=== PATIENT | female | born 1985 | race Caucasian/White ===

== ENCOUNTER 2016-04-05 09:18 | Outpatient (CLI) | payer OTHER ==
[2016-04-05 09:35] VITALS: BP 121/77; PULSE 103; RESP 20; TEMP 97.5; BMI 38.9
== END 2016-04-05 10:20 | disposition home or self-care (01) ==
LOC: FBPOP 09:18
PROVIDERS: ATTEND Obstetrics & Gynecology
DX: O30.003 Twin pregnancy, unspecified number of placenta and unspecified number of amniotic sacs, third trimester (principal); Z3A.35 35 weeks gestation of pregnancy
CPT/HCPCS: 59025; G0463; 99213

== ENCOUNTER 2016-04-07 23:40 | Inpatient (IN) | payer OTHER ==
[2016-04-08] MEDS ORDERED: ceFAZolin 2 GM in SODIUM CHLORIDE 0.9% 100 ML IVPB ONE (00:08)
[2016-04-08] MEDS ORDERED: LACTATED RINGERS 1,000 ML IV ONE (00:08)
[2016-04-08] MEDS ORDERED: CITRIC ACID-SODIUM CITRATE 15 ML CUP PO ONE (00:08)
[2016-04-08] MEDS ORDERED: LACTATED RINGERS 1,000 ML IV SCH (00:15)
--- NOTE | 2016-04-08 00:22 | P.HPOB ---
History of Present Illness H&P Date: 04/08/16 Chief Complaint: twin with spontaneous rupture membranes this patient is a pleasant 31-year-old 5 para 1 female who presents to labor and delivery with complaints of a gush of fluid at approximately 10:30 this evening. Patient's is been complicated by known mono chorionic di amniotic twins.patient has had problems initially with twin to twin transfusion and was referred to maternal- medicine and also a subspecialist at [place]. Patient's condition improved and she is subsequent been followed closely by maternal medicine and myself. Patient didn't note a gush of fluid at approximately 10:30 this evening is found to be grossly ruptured. Due to placental issues has been recommended she proceed with section rather than vaginal delivery. Review of Systems Constitutional: Denies chills, Denies fever Ears, nose, mouth and throat: Denies headache, Denies sore throat Cardiovascular: Denies chest pain, Denies shortness of breath Respiratory: Denies cough Gastrointestinal: Reports heartburn Genitourinary: Reports Menstruation: Reports amenorrhea Musculoskeletal: Denies myalgias Integumentary: Denies pruritus, Denies rash Neurological: Denies numbness, Denies weakness Past Medical History Past Medical History: Hypertension Additional Past Medical History / Comment(s): HIATAL HERNIA History of Any Multi-Drug Resistant Organisms: None Reported, MRSA Date of last positivie culture/infection: 2006 MDRO Source:: leg Past Surgical History: Cholecystectomy, Ear Surgery Past Anesthesia/Blood Transfusion Reactions: No Reported Reaction Past Psychological History: Bipolar Smoking Status: Former smoker Past Alcohol Use History: None Reported Past Drug Use History: None Reported - Past Family History Mother Family Medical History: No Reported History Medications and Allergies Home Medications Medication Instructions Recorded Confirmed Type Doxylamine Succinate [Unisom] 25 mg PO HS 12/09/15 04/05/16 History Pnv with Ca,No.72/Iron/FA 1 tab PO DAILY 12/09/15 04/05/16 History [ Plus Tablet] Pyridoxine [Vitamin B-6] 50 mg PO DAILY 12/09/15 04/05/16 History Allergies Allergy/AdvReac Type Severity Reaction Status Date / Time codeine AdvReac Chest Verified 04/05/16 09:29 Pain/Vomiting Exam - Vital Signs Vital signs: Intake and Output 04/07/16 04/07/16 04/08/16 14:59 22:59 06:59 Other: Weight 99.79 kg Patient Weight 04/08/16 06:59 Weight 99.79 kg - OBG Physical Exam Abdomen: bowel sounds normal, no diffuse tenderness, no bruit present, no guarding noted, no hepatomegaly, no splenomegaly, no mass Vulva: both: normal Vagina: normal moisture, no discharge Cervix: cervix is 4 cm dilated with gross rupture membranes Uterus: enlarged Results labs show she is O-, rubella immune, RPR nonreactive, hepatitis B-, HIV nonreactive,: Was abnormal with a normal three-hour gtt. Assessment and Plan (1) Twin gestation, monochorionic diamniotic Narrative/Plan: this is a pleasant 31-year-old 5 para 1 female 35-4/7 weeks gestation with known twin gestation and premature rupture membranes. Plan at this time as primary section for delivery. Patient I have discussed the surgery and risks including risks of infection, bleeding, possible injury bowel, bladder , vessels, and other organs. All the patient's questions are answered and a written consent is obtained. Status: Acute (2) PROM (premature rupture of membranes) Status: Acute (3) Rh negative status during Status: Acute
[2016-04-08] MEDS ORDERED: LACTATED RINGERS 1,000 ML BAG IV ONE (00:33)
[2016-04-08] MEDS ORDERED: ONDANSETRON 4 MG/2 ML VIAL ONE (00:33)
[2016-04-08] MEDS ORDERED: ePHEDrine 50 MG/ML 1 ML AMP ONE (00:33)
[2016-04-08] MEDS ORDERED: MORPHINE SULFATE (PF) 0.3 MG/0.3 ML SYR ONE (00:33)
[2016-04-08] MEDS ORDERED: OXYTOCIN 10 UNIT/ML 1 ML VIAL IM ONE (00:33)
[2016-04-08] MEDS ORDERED: KETOROLAC 30 MG/ML 1 ML VIAL ONE (00:33)
[2016-04-08] MEDS ORDERED: diphenhydrAMINE 25 MG CAP PO PRN (01:16)
[2016-04-08] MEDS ORDERED: SIMETHICONE 80 MG CHEWABLE PO PRN (01:16)
[2016-04-08] MEDS ORDERED: ACETAMINOPHEN TAB 325 MG TAB PO PRN (01:16)
[2016-04-08] MEDS ORDERED: ZOLPIDEM 5 MG TAB PO PRN (01:16)
[2016-04-08] MEDS ORDERED: Rhogam IMMUNE GLOBULIN 1,500 UNIT/1 ML IM ONE (01:16)
[2016-04-08] MEDS ORDERED: diphenhydrAMINE 50 MG/ML 1 ML VIAL IVP PRN (01:16)
[2016-04-08] MEDS ORDERED: METOCLOPRAMIDE 5 MG/ML 2 ML VIAL IVP PRN (01:16)
[2016-04-08] MEDS ORDERED: HYDROcodone/APAP 5-325MG 1 EACH TAB PO PRN (01:18)
[2016-04-08 01:26] LABS: Basophils # (A) 0.1 k/uL (0-0.2); Basophils % (A) 0 %; CH 27.7; CHCM 31.7; Eosinophils # (A) 0.2 k/uL (0-0.7); Eosinophils % (A) 1 %; HCT 27.7 % (34.0-46.0); HDW 3.55; HGB 8.9 gm/dL (11.4-16.0); Hypochromasia Moderate; Luc # (Auto) 0.44; Luc % (Auto) 3; Lymphocytes # (A) 2.9 k/uL (1.0-4.8); Lymphocytes % (A) 20 %; MCH 28.1 pg (25.0-35.0); MCV 87.8 fL (80.0-100.0); Mean Platelet Volume 7.4; Monocytes # (A) 0.9 k/uL (0-1.0); Monocytes % (A) 6 %; Neutrophils % (A) 69 %; Poikilocytosis Slight; RBC 3.16 m/uL (3.80-5.40); RDW 14.1 % (11.5-15.5); WBC 14.5 k/uL (3.8-10.6); WBC (Perox) 15.23
--- NOTE | 2016-04-08 01:31 | P.OP ---
Date of Procedure: 04/08/16 Preoperative Diagnosis: #1:35-4/7 week twin gestation, monochorionic/diamniotic #2: Premature rupture membranes. Postoperative Diagnosis: #1: Same. #2: Transverse presentation twin B Procedure(s) Performed: Primary low transverse section Anesthesia: spinal Surgeon: Kevin Segundo Second Facing Baster #1: Carlos Haley Estimated Blood Loss (ml): 800 Pathology: other (Placenta) Condition: stable Disposition: floor Indications for Procedure: Please see dictated H&P for intimate details of this patient's admission. Brief summary is a pleasant 31-year-old 5 para 1 female 35-4/7 weeks gestation who is admitted to labor and delivery with complaints of gush of fluid about 10:30 this evening. Patient's found to have gross rupture membranes. Patient has known twin gestation has scheduled approximately 1-1/2 weeks. As understand the surgery and risks including risks of infection, bleeding, possible injury to bowel, bladder, vessels, and other organs. Patient also understands risk of DVT and pulmonary embolism. All the patient's questions are answered written consent is obtained. Operative Findings: This was a viable fetus 1 male Apgars 8 and 9 delivery time is 0048 hours. Viable fetus 2 Apgars 8 and 9 delivery time 0048 hours. Fetus 1 was vertex and fetus 2 was transverse. Both infants appeared grossly normal. Description of Procedure: This patient has a Valladares catheter placed to straight drain. She is subsequent taken to the operating room where she sat up and spinal anesthetic is administered without incident. With an adequate level of anesthesia she has abdominal prep and drape. Scalpels then taken and a Pfannenstiel skin incision is then made. A second scalpel is then taken down to the fascia and it is scored with a knife. Fascial incision extended bilaterally using the Christianson scissors. Fascia is then dissected off the rectus muscles sharply. Rectus muscles are and the peritoneum was identified and entered sharply. Peritoneal incision is then extended superior and inferiorly with Metzenbaum scissors. The bladder blade is then placed. Bladder peritoneum was taken off the lower uterine segment. Scalpels and taken a low transverse uterine incision is then made. Using a hemostat I then into the uterine cavity bluntly. There is loss of clear fluid. Fetus 1 is found to be in the vertex presentation was delivered through the incision with fundal pressure. Mouth and nares are bulb suctioned and there is no evidence of a nuchal cord. Doubly clamped the cord and this infant is handed off to the nurses in attendance. I then inspected the uterine cavity and a second fetus is found to be in the transverse presentation. I guided to the vertex presentation through the incision second bag of water is ruptured for clear fluid. With this done the fetus is then delivered with fundal pressure and again this is a vigorous viable male infant Apgars 8 and 9 delivery time was 0048 hours. This umbilical cord is doubly clamped and cut and again appears to be trivascular. This fetus handed off to the nurses in attendance the placenta is then manually extracted intact. The uterus is then externalized and the uterine incision demarcated with Jett clamps. Then closed the uterine incision with 0 Vicryl suture running locked fashion. Good hemostasis is noted. Bladder peritoneum was reapproximated with 3-0 Vicryl again good hemostasis is noted. Excess fluid is removed from the abdomen and pelvis. Uterus tubes and ovaries. Normal for term gestation. Uterus placed back into the abdomen. The parietal peritoneum was then closed using 0 Vicryl running fashion. Rectus muscles reapproximated in 0 Vicryl interrupted fashion. Fascia is then closed using 0 PDS. Fascial incision is intact and hemostatic. Subcutaneous tissues and closed using a 3-0 Vicryl. Skin is and closed using gloria. All counts are correct 3. There are no complications. Infants were taken to the nursery due to her gestational age and the mother's taken to her birthing suite.
[2016-04-08] MEDS: OXYTOCIN 30 UNITS/500 ML NS 30 UNIT in SALINE 1 500ML.BAG IV SCH ×3 (01:47→19:03)
[2016-04-08 02:26] VITALS: BMI 38.9
[2016-04-08] MEDS: LACTATED RINGERS 1,000 ML IV SCH ×5 (03:39→23:10)
--- NOTE | 2016-04-08 05:51 | P.PNOBGPC ---
Subjective - Subjective Patient reports: Reports appetite normal, Reports voiding normally, Reports pain well controlled, Reports ambulating normally : doing well, in NICU Objective - Vital Signs Latest vital signs: Vital Signs Temp Pulse Resp BP Pulse Ox 04/08/16 03:15 98 F 80 16 135/80 100 04/08/16 02:45 78 16 128/62 100 04/08/16 02:15 73 16 123/78 100 04/08/16 02:00 73 16 122/73 100 04/08/16 01:45 76 16 128/76 100 04/08/16 01:30 70 16 130/70 100 04/08/16 01:15 97.8 F 70 16 132/71 100 04/08/16 00:21 96.6 F L 97 16 149/87 100 Intake and Output 04/07/16 04/07/16 04/08/16 14:59 22:59 06:59 Output Total 5800 Balance -5800 Output: Urine 1000 Emesis 4800 Other: Voiding Method Indwelling Catheter Weight 99.79 kg Patient Weight 04/08/16 06:59 Weight 99.79 kg - Exam Lungs: bilateral: normal Chest: Normal S1, Normal S2 Extremities: Present: normal Abdomen: Present: normal appearance, soft. Absent: distention, tenderness Incision: Present: normal, dry, intact Uterus: Present: normal, firm - Labs Labs: Abnormal Lab Results - Last 24 Hours (Table) 04/08/16 Range/Units 01:14 WBC 14.5 H (3.8-10.6) k/uL RBC 3.16 L (3.80-5.40) m/uL Hgb 8.9 L (11.4-16.0) gm/dL Hct 27.7 L (34.0-46.0) % Neutrophils # 10.0 H (1.3-7.7) k/uL Assessment and Plan (1) Twin gestation, monochorionic diamniotic Narrative/Plan: Postoperative day #1. Patient is resting without complaints. Preoperative hemoglobin was 8.9. A repeat is pending. Uterus is firm nontender she's having normal lochia. Incision is intact and dry. My impression is a normal postoperative course with chronic anemia. Plan is to advance diet as tolerated , check a repeat CBC, begin iron supplementation, and encouraged patient to ambulate. Current Visit: No Status: Acute Code(s): O30.039 - TWIN , MONOCHORIONIC/DIAMNIOTIC, UNSP TRIMESTER SNOMED Code(s): 82297431 (2) PROM (premature rupture of membranes) Current Visit: Yes Status: Acute Code(s): O42.90 - ZAYRA ROM, 7TH0 BETW RUPT & ONST LABR, UNSP WEEKS OF GEST SNOMED Code(s): 78131488 (3) Rh negative status during Current Visit: No Status: Acute Code(s): O09.899 - SUPERVISION OF OTHER HIGH RISK PREGNANCIES, UNSP TRIMESTER SNOMED Code(s): 610595993
[2016-04-08 08:09] LABS: Basophils # (A) 0.1 k/uL (0-0.2); Basophils % (A) 0 %; CH 28.2; CHCM 33.2; Eosinophils # (A) 0.1 k/uL (0-0.7); Eosinophils % (A) 0 %; HCT 29.2 % (34.0-46.0); HDW 3.59; HGB 9.4 gm/dL (11.4-16.0); Hypochromasia Slight; Luc # (Auto) 0.26; Luc % (Auto) 1; Lymphocytes # (A) 2.5 k/uL (1.0-4.8); Lymphocytes % (A) 12 %; MCH 27.5 pg (25.0-35.0); MCHC 32.2 g/dL (31.0-37.0); MCV 85.4 fL (80.0-100.0); Mean Platelet Volume 8.3; Monocytes % (A) 5 %; Neutrophils # (A) 17.7 k/uL (1.3-7.7); Neutrophils % (A) 82 %; Poikilocytosis Slight; RBC 3.42 m/uL (3.80-5.40); RDW 14.3 % (11.5-15.5); WBC 21.6 k/uL (3.8-10.6); WBC (Perox) 23.24
[2016-04-08] MEDS: KETOROLAC 30 MG/ML 1 ML VIAL IVP PRN ×3 (08:32→20:06)
[2016-04-08] MEDS: SENNOSIDES-DOCUSATE SODIUM 1 EACH TAB PO SCH ×2 (08:33→19:14)
[2016-04-08] MEDS: ceFAZolin 2 GM in SODIUM CHLORIDE 0.9% 100 ML IVPB SCH ×2 (09:17→17:09)
--- NOTE | 2016-04-08 10:37 | P.PN ---
Progress Note - Text Date:04/08 Time:700 Patient is status post . Patient seen this morning with VAS score of 2. c/o of pruritus, no c/o nausea/vomiting, comfortable and doing well.
[2016-04-08] MEDS: IRON AG/C/B12/CA/SUC.ACID/STOM 1 EACH TAB PO SCH (14:41)
[2016-04-08] MEDS: HYDROcodone/APAP 5-325MG 1 EACH TAB PO PRN (23:15)
[2016-04-09] MEDS: IBUPROFEN 600 MG TAB PO PRN ×4 (04:32→23:39)
--- NOTE | 2016-04-09 07:00 | P.PNOBGPC ---
Subjective - Subjective Patient reports: Reports appetite normal, Reports voiding normally, Reports pain well controlled, Reports ambulating normally : doing well, in NICU Objective - Vital Signs Latest vital signs: Vital Signs Temp Pulse Resp BP Pulse Ox 04/09/16 00:00 98.1 F 78 16 116/65 97 04/08/16 20:00 98.0 F 83 16 132/75 99 04/08/16 16:00 97.6 F 85 18 105/75 04/08/16 12:00 98.0 F 95 16 141/78 98 04/08/16 08:00 99.0 F 91 18 128/80 97 Intake and Output 04/08/16 04/08/16 04/09/16 14:59 22:59 06:59 Intake Total 225 Output Total 325 300 700 Balance -100 -300 -700 Intake: Intake, IV Titration 225 Amount Oxytocin 30 Units/500 ml 125 Ns 30 unit In Saline 1 500ml.bag @ 120 mls/hr IV .Q4H10M [facility] Rx#: [id number] ceFAZolin 2 gm In Sodium 100 Chloride 0.9% 100 ml @ 100 mls/hr IVPB Q8HR [facility] Rx#:[id number] Output: Urine 325 300 700 Uretheral (Valladares) 200 Other: Voiding Method Indwelling Catheter # Voids 0 1 1 # Bowel Movements 0 - Exam Lungs: bilateral: normal Chest: Normal S1, Normal S2 Extremities: Present: normal Abdomen: Present: normal appearance, soft. Absent: distention, tenderness Incision: Present: normal, dry, intact Uterus: Present: normal, firm - Labs Labs: Abnormal Lab Results - Last 24 Hours (Table) 04/08/16 Range/Units 07:47 WBC 21.6 H (3.8-10.6) k/uL RBC 3.42 L (3.80-5.40) m/uL Hgb 9.4 L (11.4-16.0) gm/dL Hct 29.2 L (34.0-46.0) % Neutrophils # 17.7 H (1.3-7.7) k/uL Assessment and Plan (1) Twin gestation, monochorionic diamniotic Narrative/Plan: Postoperative day #2. Patient is resting without complaints. Vital signs are stable she is afebrile. Her admission hemoglobin was 8.9 however hemoglobin went up slightly to 9.2. Patient is taking some iron. Patient is tolerating regular diet. Patient is ambulating and urinating without difficulty. Plan today is to continue routine postoperative care. Current Visit: No Status: Acute Code(s): O30.039 - TWIN , MONOCHORIONIC/DIAMNIOTIC, UNSP TRIMESTER SNOMED Code(s): 48671987 (2) PROM (premature rupture of membranes) Current Visit: Yes Status: Acute Code(s): O42.90 - ZAYRA ROM, 7TH0 BETW RUPT & ONST LABR, UNSP WEEKS OF GEST SNOMED Code(s): 76777451 (3) Rh negative status during Current Visit: No Status: Acute Code(s): O09.899 - SUPERVISION OF OTHER HIGH RISK PREGNANCIES, UNSP TRIMESTER SNOMED Code(s): 976632840
[2016-04-09] MEDS: HYDROcodone/APAP 5-325MG 1 EACH TAB PO PRN ×3 (08:34→19:55)
[2016-04-09] MEDS: SENNOSIDES-DOCUSATE SODIUM 1 EACH TAB PO SCH ×2 (08:34→19:56)
[2016-04-09] MEDS: IRON AG/C/B12/CA/SUC.ACID/STOM 1 EACH TAB PO SCH (11:10)
[2016-04-10] MEDS: HYDROcodone/APAP 5-325MG 1 EACH TAB PO PRN ×3 (03:10→16:21)
--- NOTE | 2016-04-10 06:57 | P.PNOBGPC ---
Subjective - Subjective Patient reports: Reports appetite normal, Reports voiding normally, Reports pain well controlled, Reports ambulating normally : doing well Objective - Vital Signs Latest vital signs: Vital Signs Temp Pulse Resp BP Pulse Ox 04/09/16 23:42 98.2 F 88 18 142/94 97 04/09/16 16:00 98.1 F 90 18 123/79 04/09/16 08:00 97.7 F 90 18 131/75 Intake and Output 04/09/16 04/09/16 04/10/16 14:59 22:59 06:59 Intake Total 500 1000 Balance 500 1000 Intake: Oral 500 1000 Other: # Voids 1 4 1 - Exam Lungs: bilateral: normal Chest: Normal S1, Normal S2 Extremities: Present: normal Abdomen: Present: normal appearance, soft. Absent: distention, tenderness Incision: Present: normal, dry, intact Uterus: Present: normal, firm Assessment and Plan (1) Twin gestation, monochorionic diamniotic Narrative/Plan: day #3. Patient is resting without complaints. Vital signs are stable she is afebrile. Uterus is firm nontender and her incision is intact and dry. My impression this is a normal course. Plan is continue routine postoperative care and discharge home tomorrow Current Visit: No Status: Acute Code(s): O30.039 - TWIN , MONOCHORIONIC/DIAMNIOTIC, UNSP TRIMESTER SNOMED Code(s): 35624181 (2) PROM (premature rupture of membranes) Current Visit: Yes Status: Acute Code(s): O42.90 - ZAYRA ROM, 7TH0 BETW RUPT & ONST LABR, UNSP WEEKS OF GEST SNOMED Code(s): 12401727 (3) Rh negative status during Current Visit: No Status: Acute Code(s): O09.899 - SUPERVISION OF OTHER HIGH RISK PREGNANCIES, UNSP TRIMESTER SNOMED Code(s): 916681931
[2016-04-10] MEDS: IRON AG/C/B12/CA/SUC.ACID/STOM 1 EACH TAB PO SCH (08:11)
[2016-04-10] MEDS: IBUPROFEN 600 MG TAB PO PRN ×3 (08:11→20:48)
[2016-04-10] MEDS: SENNOSIDES-DOCUSATE SODIUM 1 EACH TAB PO SCH ×2 (08:12→20:48)
[2016-04-11] MEDS: HYDROcodone/APAP 5-325MG 1 EACH TAB PO PRN ×2 (03:45→12:49)
--- NOTE | 2016-04-11 06:30 | P.PNOBGPC ---
Subjective - Subjective Patient reports: Reports appetite normal, Reports voiding normally, Reports pain well controlled, Reports ambulating normally [place]: doing well, in NICU Objective - Vital Signs Latest vital signs: Vital Signs Temp Pulse Resp BP 04/10/16 23:11 98.1 F 86 16 131/82 04/10/16 16:00 97.9 F 77 18 126/77 04/10/16 08:00 97.4 F L 90 16 126/80 Intake and Output 04/10/16 04/10/16 04/11/16 14:59 22:59 06:59 Other: # Voids 1 1 2 - Exam Lungs: bilateral: normal Chest: Normal S1, Normal S2 Extremities: Present: normal Abdomen: Present: normal appearance, soft. Absent: distention, tenderness Incision: Present: normal, dry, intact Uterus: Present: normal, firm Assessment and Plan (1) Twin gestation, monochorionic diamniotic Narrative/Plan: Postoperative day #4. Patient is resting without complaints. Vital signs are stable and she is afebrile. Uterus is firm nontender, her incision is intact and dry. Impression normal postoperative course. Plan is to continue routine postoperative care and discharge home later today. Current Visit: No Status: Acute Code(s): O30.039 - TWIN , MONOCHORIONIC/DIAMNIOTIC, UNSP TRIMESTER SNOMED Code(s): 05836999 (2) PROM (premature rupture of membranes) Current Visit: Yes Status: Acute Code(s): O42.90 - ZAYRA ROM, 7TH0 BETW RUPT & ONST LABR, UNSP WEEKS OF GEST SNOMED Code(s): 39143135 (3) Rh negative status during Current Visit: No Status: Acute Code(s): O09.899 - SUPERVISION OF OTHER HIGH RISK PREGNANCIES, UNSP TRIMESTER SNOMED Code(s): 563286367
--- NOTE | 2016-04-11 06:33 | P.DS ---
Providers Date of admission: 04/08/16 00:05 Expected date of discharge: 04/11/16 Attending physician: Kevin Segundo Primary care physician: Stated None - Discharge Diagnosis(es) (1) Twin gestation, monochorionic diamniotic Current Visit: No Status: Acute (2) PROM (premature rupture of membranes) Current Visit: Yes Status: Acute (3) Rh negative status during Current Visit: No Status: Acute Hospital Course: Please see dictated H&P for intimate details of this patient's admission. Brief summary this is a pleasant 31-year-old 5 para 1 female 35-4/7 weeks gestation with known twins presents to labor and delivery with spontaneous rupture membranes. Patient undergoes a primary low transverse section for twin male infants. The see dictated operative note. Postoperatively for patient's felt be stable for discharge home follow up with me in 1 week. Procedures: Primary low transverse section Patient Condition at Discharge: Good Plan - Discharge Summary New Discharge Prescriptions: HYDROcodone/APAP 5-325MG [[place] 5-325] 1 - 2 each PO Q4HR PRN #50 tab PRN Reason: Pain Ibuprofen [Motrin] 600 mg PO Q6HR PRN #40 tab PRN Reason: Mild Pain Or Fever >= 100.5 Iron Ag/C/B12/Ca/Suc.acid/Stom [Chromagen LF] 1 each PO DAILY #30 tab Discharge Medication List Doxylamine Succinate [Unisom] 25 mg PO HS 12/09/15 [History] Pnv with Ca,No.72/Iron/FA [ Plus Tablet] 1 tab PO DAILY 12/09/15 [ History] Pyridoxine [Vitamin B-6] 50 mg PO DAILY 12/09/15 [History] HYDROcodone/APAP 5-325MG [[place] 5-325] 1 - 2 each PO Q4HR PRN #50 tab 04/08/16 [ Rx] Ibuprofen [Motrin] 600 mg PO Q6HR PRN #40 tab 04/08/16 [Rx] Iron Ag/C/B12/Ca/Suc.acid/Stom [Chromagen LF] 1 each PO DAILY #30 tab 04/08/16 [ Rx] Follow up Appointment(s)/Referral(s): Kevin Segundo MD [STAFF PHYSICIAN] - 1 Week (Please see me in 6 weeks for a check as well.) Patient Instructions/Handouts: Iron Deficiency Anemia (DC), (DC) Activity/Diet/Wound Care/Special Instructions: No heavy lifting or strenuous activities for 6 weeks. No intercourse or anything per vagina for 6 weeks. Please call if any fever, chills, excessive vaginal bleeding, and/or abdominal pain. Discharge Disposition: HOME SELF-CARE
[2016-04-11] MEDS: SENNOSIDES-DOCUSATE SODIUM 1 EACH TAB PO SCH (08:01)
[2016-04-11] MEDS: IBUPROFEN 600 MG TAB PO PRN (08:01)
[2016-04-11 08:08] VITALS: BP 142/93; PULSE 94; RESP 20; TEMP 98.4
[2016-04-11] MEDS: IRON AG/C/B12/CA/SUC.ACID/STOM 1 EACH TAB PO SCH (12:52)
== END 2016-04-11 14:40 | disposition home or self-care (01) | DRG 765 ==
LOC: FBPOP 23:40 → 4FBP 04-08 00:05
PROVIDERS: ADMIT Obstetrics & Gynecology; ATTEND Obstetrics & Gynecology
PROC: 10D00Z1 Extraction of Products of Conception, Low, Open Approach (ICD-10-PCS; principal; 2016-04-08 00:43)
DX: O42.913 Preterm premature rupture of membranes, unspecified as to length of time between rupture and onset of labor, third trimester (principal); O10.92 Unspecified pre-existing hypertension complicating childbirth; O30.033 Twin pregnancy, monochorionic/diamniotic, third trimester; O99.02 Anemia complicating childbirth; D64.9 Anemia, unspecified; O99.72 Diseases of the skin and subcutaneous tissue complicating childbirth; O99.62 Diseases of the digestive system complicating childbirth; K44.9 Diaphragmatic hernia without obstruction or gangrene; L29.9 Pruritus, unspecified; Z37.2 Twins, both liveborn; Z3A.35 35 weeks gestation of pregnancy; Z67.91 Unspecified blood type, Rh negative; Z87.891 Personal history of nicotine dependence; Z86.14 Personal history of Methicillin resistant Staphylococcus aureus infection
CPT/HCPCS: 59025; 84112; 85025; 85461; 86850; 86870; 86880; 86900; 86901; 88307; 99213

== ENCOUNTER 2017-01-08 03:45 | Emergency (ER) | payer OTHER ==
[2017-01-08] MEDS ORDERED: ACETAMINOPHEN TAB 325 MG TAB PO STA (04:15)
[2017-01-08] MEDS ORDERED: SODIUM CHLORIDE 0.9% 1,000 ML IV ONE (04:15)
[2017-01-08] MEDS ORDERED: MAG HYDROX/AL HYDROX/SIMETH 30 ML CUP PO PRN (04:16)
[2017-01-08] MEDS ORDERED: LIDOCAINE VISCOUS 2% 15 ML CUP MUCOUS MEM ONE (04:16)
[2017-01-08 04:33] LABS: Basophils % (A) 0 %; CH 28.5; Eosinophils # (A) 0.3 k/uL (0-0.7); Eosinophils % (A) 2 %; HCT 34.7 % (34.0-46.0); HDW 2.69; HGB 11.7 gm/dL (11.4-16.0); Luc # (Auto) 0.21; Luc % (Auto) 2; Lymphocytes # (A) 0.9 k/uL (1.0-4.8); Lymphocytes % (A) 7 %; MCH 29.3 pg (25.0-35.0); MCHC 33.7 g/dL (31.0-37.0); MCV 86.9 fL (80.0-100.0); Mean Platelet Volume 6.8; Monocytes # (A) 0.6 k/uL (0-1.0); Monocytes % (A) 5 %; Neutrophils # (A) 10.2 k/uL (1.3-7.7); Neutrophils % (A) 84 %; RBC 3.99 m/uL (3.80-5.40); RDW 14.9 % (11.5-15.5); WBC 12.2 k/uL (3.8-10.6); WBC (Perox) 12.11
--- NOTE | 2017-01-08 04:34 | ED ---
Back Pain HPI - General Chief Complaint: Back Pain/Injury Stated Complaint: Abdominal Pain Time Seen by Provider: 01/08/17 03:59 Source: patient Limitations: no limitations - History of Present Illness Initial Comments: This patient is a 31-year-old woman who presents with pain to the mid back. She describes it as a dull type of pain, constant, moderate to severe intensity. The patient states it is made worse by certain positions and also when she takes a deep breath in. She states that it also sometimes seems worse after eating. It was slightly better if she lies still on the bed. Patient denies having any sort of injury. She woke with the pain Az morning. She has not had any associated symptoms. MD Complaint: back pain Onset/Timin -: days(s) Similar Symptoms Previously: No Place: home Radiation: abdomen Severity: moderate Quality: dull, aching Consistency: constant Improves With: none Worsens With: movement, deep breaths/cough - Related Data Home Medications Medication Instructions Recorded Confirmed Pnv,Calcium 72/Iron/Folic Acid 1 tab PO DAILY 12/09/15 01/08/17 [ Plus Tablet] Allergies Allergy/AdvReac Type Severity Reaction Status Date / Time codeine AdvReac Chest Verified 04/25/16 13:31 Pain/Vomiting Review of Systems ROS Statement: Those systems with pertinent positive or pertinent negative responses have been documented in the HPI. ROS Other: All systems not noted in ROS Statement are negative. Constitutional: Denies: fever, chills Respiratory: Denies: cough, dyspnea Cardiovascular: Denies: chest pain, palpitations, edema, syncope Gastrointestinal: Denies: abdominal pain, nausea, vomiting, diarrhea, constipation Genitourinary: Denies: dysuria, frequency, hematuria, discharge, abnormal menses Musculoskeletal: Reports: as per HPI, back pain Skin: Denies: rash Neurological: Denies: headache, weakness, numbness Past Medical History Past Medical History: Hypertension Additional Past Medical History / Comment(s): HIATAL HERNIA History of Any Multi-Drug Resistant Organisms: MRSA Date of last positivie culture/infection: 10/25/07 MDRO Source:: legs Past Surgical History: Section, Cholecystectomy, Ear Surgery Past Anesthesia/Blood Transfusion Reactions: No Reported Reaction Past Psychological History: Bipolar Smoking Status: Current every day smoker Past Alcohol Use History: None Reported Past Drug Use History: None Reported - Past Family History Mother Family Medical History: No Reported History General Exam Limitations: no limitations General appearance: alert, in no apparent distress Head exam: Present: atraumatic, normocephalic Eye exam: Present: normal appearance. Absent: scleral icterus, conjunctival injection ENT exam: Present: normal oropharynx Neck exam: Present: normal inspection, full ROM Respiratory exam: Present: normal lung sounds bilaterally. Absent: respiratory distress, wheezes, rales, rhonchi, stridor Cardiovascular Exam: Present: normal rhythm, tachycardia (Rate approximately 112 bpm), systolic murmur (Grade 1/6 systolic ejection murmur). Absent: diastolic murmur, rubs, gallop GI/Abdominal exam: Present: soft. Absent: tenderness, guarding, rebound, mass Extremities exam: Present: normal inspection, normal capillary refill. Absent: pedal edema, calf tenderness Back exam: Present: normal inspection. Absent: CVA tenderness (R), CVA tenderness (L) Skin exam: Present: warm, dry, intact, normal color. Absent: rash Course Vital Signs 01/08/17 03:46 Temperature 98.0 F Pulse Rate 114 H Respiratory 20 Rate Blood Pressure 128/79 O2 Sat by Pulse 96 Oximetry Medical Decision Making - Medical Decision Making After discussing the results today, the patient requested to try something for constipation and will be given magnesium citrate to try at home. - Lab Data Result diagrams: 01/08/17 04:14 01/08/17 04:14 Lab Results 01/08/17 01/08/17 01/08/17 Range/Units 04:06 04:14 04:14 WBC 12.2 H (3.8-10.6) k/uL RBC 3.99 (3.80-5.40) m/uL Hgb 11.7 (11.4-16.0) gm/dL Hct 34.7 (34.0-46.0) % MCV 86.9 (80.0-100.0) fL MCH 29.3 (25.0-35.0) pg MCHC 33.7 (31.0-37.0) g/dL RDW 14.9 (11.5-15.5) % Plt Count 252 (150-450) k/uL Neutrophils % 84 % Lymphocytes % 7 % Monocytes % 5 % Eosinophils % 2 % Basophils % 0 % Neutrophils # 10.2 H (1.3-7.7) k/uL Lymphocytes # 0.9 L (1.0-4.8) k/uL Monocytes # 0.6 (0-1.0) k/uL Eosinophils # 0.3 (0-0.7) k/uL Basophils # 0.0 (0-0.2) k/uL D-Dimer (<0.60) mg/L FEU Sodium 137 (137-145) mmol/L Potassium 3.9 (3.5-5.1) mmol/L Chloride 108 H (98-107) mmol/L Carbon Dioxide 17 L (22-30) mmol/L Anion Gap 12 mmol/L BUN 4 L (7-17) mg/dL Creatinine 0.50 L (0.52-1.04) mg/dL Est GFR (MDRD) Af Amer >60 (>60 ml/min/1.73 sqM) Est GFR (MDRD) Non-Af >60 (>60 ml/min/1.73 sqM) Glucose 97 (74-99) mg/dL Calcium 8.7 (8.4-10.2) mg/dL Total Bilirubin 0.2 (0.2-1.3) mg/dL AST 11 L (14-36) U/L ALT 26 (9-52) U/L Alkaline Phosphatase 110 (38-126) U/L Total Protein 6.5 (6.3-8.2) g/dL Albumin 3.4 L (3.5-5.0) g/dL Amylase 55 (30-110) U/L Lipase 84 (23-300) U/L Urine Color Light Yellow Urine Appearance Cloudy H (Clear) Urine pH 7.0 (5.0-8.0) Ur Specific [place] 1.005 (1.001-1.035) Urine Protein Negative (Negative) Urine Glucose (UA) Negative (Negative) Urine Ketones Negative (Negative) Urine Blood Negative (Negative) Urine Nitrite Negative (Negative) Urine Bilirubin Negative (Negative) Urine Urobilinogen <2.0 (<2.0) mg/dL Ur Leukocyte Esterase Negative (Negative) Urine WBC 2 (0-5) /hpf Ur Squamous Epith Cells 6 H (0-4) /hpf Urine Bacteria Occasional H (None) /hpf Urine Mucus Rare H (None) /hpf 10/08/17 Range/Units 04:14 WBC (3.8-10.6) k/uL RBC (3.80-5.40) m/uL Hgb (11.4-16.0) gm/dL Hct (34.0-46.0) % MCV (80.0-100.0) fL MCH (25.0-35.0) pg MCHC (31.0-37.0) g/dL RDW (11.5-15.5) % Plt Count (150-450) k/uL Neutrophils % % Lymphocytes % % Monocytes % % Eosinophils % % Basophils % % Neutrophils # (1.3-7.7) k/uL Lymphocytes # (1.0-4.8) k/uL Monocytes # (0-1.0) k/uL Eosinophils # (0-0.7) k/uL Basophils # (0-0.2) k/uL D-Dimer 0.56 (<0.60) mg/L FEU Sodium (137-145) mmol/L Potassium (3.5-5.1) mmol/L Chloride (98-107) mmol/L Carbon Dioxide (22-30) mmol/L Anion Gap mmol/L BUN (7-17) mg/dL Creatinine (0.52-1.04) mg/dL Est GFR (MDRD) Af Amer (>60 ml/min/1.73 sqM) Est GFR (MDRD) Non-Af (>60 ml/min/1.73 sqM) Glucose (74-99) mg/dL Calcium (8.4-10.2) mg/dL Total Bilirubin (0.2-1.3) mg/dL AST (14-36) U/L ALT (9-52) U/L Alkaline Phosphatase (38-126) U/L Total Protein (6.3-8.2) g/dL Albumin (3.5-5.0) g/dL Amylase (30-110) U/L Lipase (23-300) U/L Urine Color Urine Appearance (Clear) Urine pH (5.0-8.0) Ur Specific [place] (1.001-1.035) Urine Protein (Negative) Urine Glucose (UA) (Negative) Urine Ketones (Negative) Urine Blood (Negative) Urine Nitrite (Negative) Urine Bilirubin (Negative) Urine Urobilinogen (<2.0) mg/dL Ur Leukocyte Esterase (Negative) Urine WBC (0-5) /hpf Ur Squamous Epith Cells (0-4) /hpf Urine Bacteria (None) /hpf Urine Mucus (None) /hpf Disposition Clinical Impression: Mid back pain Disposition: HOME SELF-CARE Condition: Fair Instructions: Back Pain (ED) Referrals: None,Stated [Primary Care Provider] - 1-2 days
[2017-01-08 04:35] LABS: Appearance,Urine Cloudy (Clear); Bacteria,Urine Occasional /hpf; Bilirubin,Urine Negative (Negative); Glucose,Urine (UA) Negative (Negative); Ketones,Urine Negative (Negative); Leukocyte Esterase,Urine Negative (Negative); Mucus,Urine Rare /hpf; Nitrite,Urine Negative (Negative); Particle Count 3463; Protein,Urine Negative (Negative); Specific Gravity,Urine 1.005 (1.001-1.035); Squamous Epithelial Cell,Urine 6 /hpf (0-4); UA Billing (MACRO vs. MICRO) MICRO; Urobilinogen,Urine <2.0 mg/dL (<2.0); WBC,Urine 2 /hpf (0-5)
[2017-01-08 04:58] LABS: ALT 26 U/L (9-52); AST 11 U/L (14-36); Alkaline Phosphatase 110 U/L (38-126); Amylase 55 U/L (30-110); Anion Gap 12 mmol/L; Blood Urea Nitrogen 4 mg/dL (7-17); Calcium 8.7 mg/dL (8.4-10.2); Carbon Dioxide 17 mmol/L (22-30); Chloride 108 mmol/L (98-107); Glucose 97 mg/dL (74-99); Non-African American GFR(MDRD) >60 (>60 ml/min/1.73 sqM); Potassium 3.9 mmol/L (3.5-5.1); Sodium 137 mmol/L (137-145); Total Bilirubin 0.2 mg/dL (0.2-1.3); Total Protein 6.5 g/dL (6.3-8.2)
[2017-01-08] MEDS ORDERED: MAGNESIUM CITRATE 296 ML BOTTLE PO ONE (05:30)
[2017-01-08 06:05] VITALS: BP 121/64; PULSE 94; RESP 18; TEMP 97.2
== END 2017-01-08 06:05 | disposition home or self-care (01) ==
LOC: EC 03:45
DX: M54.9 Dorsalgia, unspecified (principal); K59.00 Constipation, unspecified; R10.9 Unspecified abdominal pain; R05 Cough; F17.200 Nicotine dependence, unspecified, uncomplicated; Z79.899 Other long term (current) drug therapy; Z88.5 Allergy status to narcotic agent; Z90.49 Acquired absence of other specified parts of digestive tract
CPT/HCPCS: 36415; 80053; 81001; 82150; 83690; 85025; 85379; 96360; 99284

== ENCOUNTER 2017-01-10 12:55 | Emergency (ER) | payer OTHER ==
[2017-01-10 13:20] VITALS: RESP 18
[2017-01-10] MEDS ORDERED: ACETAMINOPHEN TAB 500 MG TAB PO STA (14:34)
[2017-01-10] MEDS ORDERED: SODIUM CHLORIDE 0.9% 1,000 ML IV STA (14:34)
--- NOTE | 2017-01-10 15:24 | ED ---
General Adult HPI - General Chief complaint: Fever Stated complaint: fever 5 months preganant Time Seen by Provider: 01/10/17 14:16 Source: patient, RN notes reviewed Mode of arrival: ambulatory Limitations: no limitations - History of Present Illness Initial comments: 31-year-old female presents emergency Department chief complaint of fever. Patient states she's had a fever and body aches for the past morning. Patient states that her children have been sick with viral like illnesses. Patient states that now she feels as if she is getting sick. She is about 5 months so she was concerned so she called the OB and they referred her to come here. Patient denies any excessive cough she denies any shortness of breath she denies any pain. She states that she just feels achy and has a fever. She states she took about 500 mg of Tylenol around noon today. Patient denies any recent shortness of breath, chest pain, back pain, abdominal pain, nausea vomiting, numbness or tingling, dysuria or hematuria, constipation or diarrhea, headaches or visual changes, or any other current symptoms. - Related Data Home Medications Medication Instructions Recorded Confirmed Acetaminophen Tab [Tylenol Tab] 650 mg PO Q4H PRN 01/10/17 01/10/17 Pedi Multivit No.25/Folic Acid 600 mcg PO DAILY 01/10/17 01/10/17 [Flintstones Multivit Chew Tab] Allergies Allergy/AdvReac Type Severity Reaction Status Date / Time codeine AdvReac Chest Verified 01/10/17 14:15 Pain/Vomiting Review of Systems ROS Statement: Those systems with pertinent positive or pertinent negative responses have been documented in the HPI. ROS Other: All systems not noted in ROS Statement are negative. Past Medical History Past Medical History: Hypertension Additional Past Medical History / Comment(s): HIATAL HERNIA History of Any Multi-Drug Resistant Organisms: MRSA Date of last positivie culture/infection: 10/25/07 MDRO Source:: legs Past Surgical History: Section, Cholecystectomy, Ear Surgery Past Anesthesia/Blood Transfusion Reactions: No Reported Reaction Past Psychological History: Bipolar Smoking Status: Current every day smoker Past Alcohol Use History: None Reported Past Drug Use History: None Reported - Past Family History Mother Family Medical History: No Reported History General Exam - General Exam Comments Initial Comments: General: The patient is awake and alert, in no distress, and does not appear acutely ill. Eye: Pupils are equal, round and reactive to light, extra-ocular movements are intact; there is normal conjunctiva bilaterally. No signs of icterus. Ears, nose, mouth and throat: There are moist mucous membranes and no oral lesions. Neck: The neck is supple, there is no tenderness. Cardiovascular: There is a regular rate and rhythm. No murmur, rub or gallop is appreciated. Respiratory: Lungs are clear to auscultation, respirations are non-labored, breath sounds are equal. No wheezes, stridor, rales, or rhonchi. Gastrointestinal: Soft, non-distended, non-tender abdomen without masses or organomegaly noted. There is no rebound or guarding present. No CVA tenderness. Bowel sounds are unremarkable. Back: There is no tenderness to palpation in the midline. There is no obvious deformity. No rashes noted. Musculoskeletal: Normal ROM, no tenderness, There is no pedal edema. There is no calf tenderness or swelling. Sensation intact. Pulses equal bilaterally 2+. Neurological: CN II-XII intact, There are no obvious motor or sensory deficits. Coordination appears grossly intact. Speech is normal. Skin: Skin is warm and dry and no rashes or lesions are noted. Psychiatric: Cooperative, appropriate mood & affect, normal judgment. Limitations: no limitations Course Vital Signs 01/10/17 01/10/17 13:17 15:30 Temperature 99.1 F 99.3 F Pulse Rate 97 93 Respiratory 18 18 Rate Blood Pressure 122/60 138/72 O2 Sat by Pulse 94 L 100 Oximetry Medical Decision Making - Medical Decision Making 31-year-old female presents to the emergency Department chief complaint of fever. at this time patient's lab work is been reviewed. Patient is feeling better in the room and patient is still not had a fever here. She'll take Tylenol prior to arrival. The tenderness is most likely viral like syndrome. We discussed follow-up with her doctor return parameters. She states her children have been sick with similar like symptoms. They are in agreement with this plan all cushions have been answered. They'll be discharged. - Lab Data Result diagrams: 01/10/17 15:09 01/10/17 15:09 Lab Results 01/10/17 01/10/17 01/10/17 Range/Units 15:09 15:09 15:09 WBC 11.8 H (3.8-10.6) k/uL RBC 4.37 (3.80-5.40) m/uL Hgb 12.5 (11.4-16.0) gm/dL Hct 37.9 (34.0-46.0) % MCV 86.9 (80.0-100.0) fL MCH 28.5 (25.0-35.0) pg MCHC 32.8 (31.0-37.0) g/dL RDW 14.6 (11.5-15.5) % Plt Count 266 (150-450) k/uL Neutrophils % 74 % Lymphocytes % 15 % Monocytes % 6 % Eosinophils % 1 % Basophils % 0 % Neutrophils # 8.8 H (1.3-7.7) k/uL Lymphocytes # 1.8 (1.0-4.8) k/uL Monocytes # 0.7 (0-1.0) k/uL Eosinophils # 0.1 (0-0.7) k/uL Basophils # 0.1 (0-0.2) k/uL Sodium 138 (137-145) mmol/L Potassium 3.8 (3.5-5.1) mmol/L Chloride 103 (98-107) mmol/L Carbon Dioxide 22 (22-30) mmol/L Anion Gap 13 mmol/L BUN 5 L (7-17) mg/dL Creatinine 0.60 (0.52-1.04) mg/dL Est GFR (MDRD) Af Amer >60 (>60 ml/min/1.73 sqM) Est GFR (MDRD) Non-Af >60 (>60 ml/min/1.73 sqM) Glucose 84 (74-99) mg/dL Plasma Lactic Acid [place] (0.7-2.0) mmol/L Calcium 9.3 (8.4-10.2) mg/dL Total Bilirubin 0.4 (0.2-1.3) mg/dL AST 15 (14-36) U/L ALT 26 (9-52) U/L Alkaline Phosphatase 125 (38-126) U/L Total Protein 7.3 (6.3-8.2) g/dL Albumin 3.9 (3.5-5.0) g/dL Urine Color Urine Appearance (Clear) Urine pH (5.0-8.0) Ur Specific [place] (1.001-1.035) Urine Protein (Negative) Urine Glucose (UA) (Negative) Urine Ketones (Negative) Urine Blood (Negative) Urine Nitrite (Negative) Urine Bilirubin (Negative) Urine Urobilinogen (<2.0) mg/dL Ur Leukocyte Esterase (Negative) Urine WBC (0-5) /hpf Ur Squamous Epith Cells (0-4) /hpf Urine Bacteria (None) /hpf Influenza Type A RNA Not Detected (Not Detectd) Influenza Type B (PCR) Not Detected (Not Detectd) 01/10/17 01/10/17 Range/Units 15:09 15:09 WBC (3.8-10.6) k/uL RBC (3.80-5.40) m/uL Hgb (11.4-16.0) gm/dL Hct (34.0-46.0) % MCV (80.0-100.0) fL MCH (25.0-35.0) pg MCHC (31.0-37.0) g/dL RDW (11.5-15.5) % Plt Count (150-450) k/uL Neutrophils % % Lymphocytes % % Monocytes % % Eosinophils % % Basophils % % Neutrophils # (1.3-7.7) k/uL Lymphocytes # (1.0-4.8) k/uL Monocytes # (0-1.0) k/uL Eosinophils # (0-0.7) k/uL Basophils # (0-0.2) k/uL Sodium (137-145) mmol/L Potassium (3.5-5.1) mmol/L Chloride (98-107) mmol/L Carbon Dioxide (22-30) mmol/L Anion Gap mmol/L BUN (7-17) mg/dL Creatinine (0.52-1.04) mg/dL Est GFR (MDRD) Af Amer (>60 ml/min/1.73 sqM) Est GFR (MDRD) Non-Af (>60 ml/min/1.73 sqM) Glucose (74-99) mg/dL Plasma Lactic Acid [place] 1.1 (0.7-2.0) mmol/L Calcium (8.4-10.2) mg/dL Total Bilirubin (0.2-1.3) mg/dL AST (14-36) U/L ALT (9-52) U/L Alkaline Phosphatase (38-126) U/L Total Protein (6.3-8.2) g/dL Albumin (3.5-5.0) g/dL Urine Color Light Yellow Urine Appearance Cloudy H (Clear) Urine pH 7.0 (5.0-8.0) Ur Specific [place] 1.005 (1.001-1.035) Urine Protein Negative (Negative) Urine Glucose (UA) Negative (Negative) Urine Ketones Negative (Negative) Urine Blood Negative (Negative) Urine Nitrite Negative (Negative) Urine Bilirubin Negative (Negative) Urine Urobilinogen <2.0 (<2.0) mg/dL Ur Leukocyte Esterase Negative (Negative) Urine WBC 1 (0-5) /hpf Ur Squamous Epith Cells 7 H (0-4) /hpf Urine Bacteria Occasional H (None) /hpf Influenza Type A RNA (Not Detectd) Influenza Type B (PCR) (Not Detectd) Disposition Clinical Impression: Viral syndrome Disposition: HOME SELF-CARE Condition: Stable Instructions: Fever in Adults (ED) Additional Instructions: Please use medication as discussed. Please follow up with family doctor if symptoms have not improved over the next two days. Please return to the emergency room if your symptoms increase or worsen or for any other concerns. Referrals: Diana Medina MD [STAFF PHYSICIAN] - 1-2 days Time of Disposition: 15:50
[2017-01-10 15:25] LABS: Basophils # (A) 0.1 k/uL (0-0.2); Basophils % (A) 0 %; CH 28.4; CHCM 32.9; Eosinophils # (A) 0.1 k/uL (0-0.7); Eosinophils % (A) 1 %; HCT 37.9 % (34.0-46.0); HDW 2.69; HGB 12.5 gm/dL (11.4-16.0); Luc # (Auto) 0.38; Luc % (Auto) 3; Lymphocytes # (A) 1.8 k/uL (1.0-4.8); Lymphocytes % (A) 15 %; MCH 28.5 pg (25.0-35.0); MCHC 32.8 g/dL (31.0-37.0); MCV 86.9 fL (80.0-100.0); Mean Platelet Volume 6.5; Monocytes # (A) 0.7 k/uL (0-1.0); Monocytes % (A) 6 %; Neutrophils # (A) 8.8 k/uL (1.3-7.7); Neutrophils % (A) 74 %; RBC 4.37 m/uL (3.80-5.40); RDW 14.6 % (11.5-15.5); WBC 11.8 k/uL (3.8-10.6); WBC (Perox) 12.07
[2017-01-10 15:26] LABS: Appearance,Urine Cloudy (Clear); Bacteria,Urine Occasional /hpf; Bilirubin,Urine Negative (Negative); Glucose,Urine (UA) Negative (Negative); Ketones,Urine Negative (Negative); Leukocyte Esterase,Urine Negative (Negative); Nitrite,Urine Negative (Negative); Particle Count 2951; Protein,Urine Negative (Negative); Specific Gravity,Urine 1.005 (1.001-1.035); Squamous Epithelial Cell,Urine 7 /hpf (0-4); UA Billing (MACRO vs. MICRO) MICRO; Urobilinogen,Urine <2.0 mg/dL (<2.0); WBC,Urine 1 /hpf (0-5)
[2017-01-10 15:29] LABS: ALT 26 U/L (9-52); AST 15 U/L (14-36); Alkaline Phosphatase 125 U/L (38-126); Anion Gap 13 mmol/L; Blood Urea Nitrogen 5 mg/dL (7-17); Calcium 9.3 mg/dL (8.4-10.2); Carbon Dioxide 22 mmol/L (22-30); Chloride 103 mmol/L (98-107); Glucose 84 mg/dL (74-99); Non-African American GFR(MDRD) >60 (>60 ml/min/1.73 sqM); Potassium 3.8 mmol/L (3.5-5.1); Sodium 138 mmol/L (137-145); Total Bilirubin 0.4 mg/dL (0.2-1.3); Total Protein 7.3 g/dL (6.3-8.2)
[2017-01-10 15:31] VITALS: BP 138/72; PULSE 93; TEMP 99.3
== END 2017-01-10 16:10 | disposition home or self-care (01) ==
LOC: EC 12:55
DX: O98.512 Other viral diseases complicating pregnancy, second trimester (principal); B34.9 Viral infection, unspecified; O99.332 Smoking (tobacco) complicating pregnancy, second trimester; F17.200 Nicotine dependence, unspecified, uncomplicated; Z98.890 Other specified postprocedural states; Z86.14 Personal history of Methicillin resistant Staphylococcus aureus infection; Z88.5 Allergy status to narcotic agent; Z3A.20 20 weeks gestation of pregnancy; Z79.899 Other long term (current) drug therapy
CPT/HCPCS: 36415; 80053; 81001; 83605; 85025; 87040; 87086; 87502; 96360; 99283

== ENCOUNTER → 2017-01-18 | Outpatient (CLI) | payer OTHER ==
--- NOTE | 2017-01-19 10:55 | US ---
EXAMINATION TYPE: US OB >= 14 wk fetus DATE OF EXAM: 01/18/2017 COMPARISON: None CLINICAL HISTORY: Z36 Confirm Dates TECHNIQUE: Transabdominal (TA) GESTATIONAL AGE / DATING Physician Established: Not yet established EDC: Dates by LMP: unknown Dates by First Scan: 1st scan today ( Dates by Current Scan: (26 weeks/6 days) EDC: 04/20/17 SURVEY IUP: Single PLACENTA: Posterior PREVIA: Low Lying CLEMENTE: 15.4 cm CERVICAL LENGTH (transabdominal: norm > 3.0cm): 4.5 cm BIOMETRY PRESENTATION: Vertex LIE: Longitudinal BPD: 6.7 cm 27 weeks / 2 days HC: 25.0 cm 27 weeks / 0 days AC: 22.6 cm 27 weeks / 0 days FL: 5.1 cm 27 weeks / 2 days ESTIMATED WEIGHT IN GRAMS: 1029 grams ESTIMATED WEIGHT IN LBS/OZ: 2 lbs. 4 oz. WEIGHT PERCENTAGE BASED ON ESTABLISHED DATES: % HC/AC: 1.1 FL/AC: 22.6 HEART RATE: 145 bpm RHYTHM: Normal MATERNAL WALL MEASUREMENT: 3.2 cm from skin to anterior uterine wall (if exam limited due to body hab itus). IMPRESSION: Single intrauterine gestation with cardiac activity measuring 145 bpm. Based on the current ultrasoun d measurements the estimated gestational age is 26 weeks 6 days gestation with a calculated EDC 2017
== END | disposition home or self-care (01) ==
LOC: RADUSWWP 15:44
PROVIDERS: ATTEND Obstetrics & Gynecology
DX: Z36.89 Encounter for other specified antenatal screening (principal); Z3A.26 26 weeks gestation of pregnancy
CPT/HCPCS: 76805

== ENCOUNTER 2017-04-14 05:48 | Inpatient (IN) | payer OTHER ==
--- NOTE | 2017-04-13 06:22 | P.HPOB ---
History of Present Illness H&P Date: 04/13/17 Chief Complaint: Repeat section and tubal ligation. This patient is a pleasant 32-year-old 6 para 3 female estimated date of confinement 04/20/2017 estimated gestational age 39 and one sevenths weeks gestation who is admitted to labor and delivery for requested repeat section and also wishes to have permanent sterilization. Patient's history is such that she's had previous vaginal delivery and then a section for twin gestation. Patient's requested repeat at this time. is been uncomplicated with the exception of some issues with compliance with visits with gaps care. Otherwise been uncomplicated. Review of Systems Gastrointestinal: Reports heartburn Genitourinary: Reports Menstruation: Reports amenorrhea Past Medical History Past Medical History: Hypertension Additional Past Medical History / Comment(s): HIATAL HERNIA History of Any Multi-Drug Resistant Organisms: MRSA Date of last positivie culture/infection: 10/25/07 MDRO Source:: legs Past Surgical History: Section, Cholecystectomy, Ear Surgery Past Anesthesia/Blood Transfusion Reactions: No Reported Reaction Past Psychological History: Bipolar Smoking Status: Current every day smoker Past Alcohol Use History: None Reported Past Drug Use History: None Reported - Past Family History Mother Family Medical History: No Reported History Medications and Allergies Home Medications Medication Instructions Recorded Confirmed Type Acetaminophen Tab [Tylenol Tab] 650 mg PO Q4H PRN 01/10/17 01/10/17 History Pedi Multivit No.25/Folic Acid 600 mcg PO DAILY 01/10/17 01/10/17 History [Flintstones Multivit Chew Tab] Allergies Allergy/AdvReac Type Severity Reaction Status Date / Time codeine AdvReac Chest Verified 01/10/17 14:15 Pain/Vomiting Exam - OBG Physical Exam Abdomen: bowel sounds normal, no diffuse tenderness, no bruit present, no guarding noted, no hepatomegaly, no splenomegaly, no mass Vulva: both: normal Vagina: normal moisture, no discharge Cervix: no lesion (Cervix in the office is closed.), no discharge Uterus: enlarged (Fundal height is consistent with a term gestation.) Results blood work shows she is O negative, rubella immune, RPR nonreactive, HIV nonreactive, hepatitis B negative, patient did receive RhoGAM on January 26. , Patient's had normal anatomy ultrasounds. Glucola was normal, group B strep was negative. Assessment and Plan Assessment: This is a pleasant 32-year-old 6 para 3 female 39 and one sevenths weeks gestation who is presenting for requested repeat section and also requesting permanent sterilization. Plan is repeat low transverse section and bilateral partial salpingectomy. Patient does understand a tubal ligation is permanent however there is considered failure rate of approximately 5 or less per thousand. She understands if she does become she has a 50% chance of a tubal or an ectopic . Patient also understands surgery and apparently has risks including risks of infection, bleeding, possible injury bowel, bladder, vessels, and/or other organs. All the patient's questions are answered and a written consent is obtained. (1) Third trimester Status: Acute Code(s): Z34.93 - ENCNTR FOR SUPRVSN OF NORMAL PREG, UNSP, THIRD TRIMESTER SNOMED Code(s): 38587787 (2) Previous delivery affecting Status: Acute Code(s): O34.219 - MATERNAL CARE FOR UNSP TYPE SCAR FROM PREVIOUS DEL SNOMED Code(s): 298708830 (3) Family planning Status: Acute Code(s): Z30.09 - ENCOUNTER FOR OTH GENERAL CNSL AND ADVICE ON CONTRACEPTION SNOMED Code(s): 265868357
[2017-04-14] MEDS ORDERED: LACTATED RINGERS 1,000 ML IV SCH (05:58)
[2017-04-14] MEDS ORDERED: LACTATED RINGERS 1,000 ML IV ONE (05:58)
[2017-04-14] MEDS ORDERED: CITRIC ACID-SODIUM CITRATE 15 ML CUP PO ONE (05:58)
[2017-04-14 06:04] VITALS: BMI 87.0
[2017-04-14 06:18] LABS: Basophils # (A) 0.1 k/uL (0-0.2); Basophils % (A) 0 %; Eosinophils # (A) 0.2 k/uL (0-0.7); Eosinophils % (A) 2 %; HCT 33.4 % (34.0-46.0); HGB 10.6 gm/dL (11.4-16.0); Hypochromasia Slight; Lymphocytes # (A) 2.1 k/uL (1.0-4.8); Lymphocytes % (A) 14 %; MCH 26.3 pg (25.0-35.0); MCHC 31.6 g/dL (31.0-37.0); MCV 83.3 fL (80.0-100.0); Mean Platelet Volume 7.7; Monocytes # (A) 0.9 k/uL (0-1.0); Monocytes % (A) 6 %; Neutrophils # (A) 11.5 k/uL (1.3-7.7); Neutrophils % (A) 77 %; Platelet Count 282 k/uL (150-450); RBC 4.02 m/uL (3.80-5.40); RDW 15.9 % (11.5-15.5)
[2017-04-14] MEDS ORDERED: ceFAZolin IN SWFI 2 GM/20 ML SYRINGE IVP ONE (07:15)
[2017-04-14] MEDS ORDERED: NALBUPHINE 10 MG/ML AMPUL ONE (07:45)
[2017-04-14] MEDS ORDERED: KETOROLAC 30 MG/ML 1 ML VIAL ONE (07:45)
[2017-04-14] MEDS ORDERED: ONDANSETRON 4 MG/2 ML VIAL ONE (07:45)
[2017-04-14] MEDS ORDERED: DEXAMETHASONE SOD PHOS (MDV) 100 MG/10 ML VIAL ONE (07:45)
[2017-04-14] MEDS ORDERED: MORPHINE SULFATE (PF) 0.3 MG/0.3 ML SYR ONE (07:45)
[2017-04-14] MEDS ORDERED: OXYTOCIN 10 UNIT/ML 1 ML VIAL ONE (07:45)
[2017-04-14] MEDS ORDERED: METOCLOPRAMIDE 5 MG/ML 2 ML VIAL IVP PRN ×2 (08:28→08:38)
[2017-04-14] MEDS ORDERED: NALBUPHINE 10 MG/ML AMPUL IV PRN (08:28)
[2017-04-14] MEDS ORDERED: PROMETHAZINE INJ 6.25 MG in SODIUM CHLORIDE 0.9% 50 ML IVPB PRN (08:28)
[2017-04-14] MEDS ORDERED: NALOXONE 0.4 MG/ML 1 ML VIAL IV PRN ×2 (08:28→08:38)
[2017-04-14] MEDS ORDERED: ONDANSETRON 4 MG/2 ML VIAL IVP PRN ×2 (08:28→08:38)
[2017-04-14] MEDS ORDERED: MORPHINE SULFATE 5 MG/ML SYRINGE IVP PRN (08:28)
[2017-04-14] MEDS ORDERED: ZOLPIDEM 5 MG TAB PO PRN (08:38)
[2017-04-14] MEDS ORDERED: Rhogam IMMUNE GLOBULIN 1,500 UNIT/1 ML IM ONE (08:38)
[2017-04-14] MEDS ORDERED: SIMETHICONE 80 MG CHEWABLE PO PRN (08:38)
[2017-04-14] MEDS ORDERED: diphenhydrAMINE 25 MG CAP PO PRN (08:38)
[2017-04-14] MEDS ORDERED: diphenhydrAMINE 50 MG/ML 1 ML VIAL IVP PRN (08:38)
[2017-04-14] MEDS ORDERED: ACETAMINOPHEN TAB 325 MG TAB PO PRN (08:38)
--- NOTE | 2017-04-14 08:43 | P.OP ---
Date of Procedure: 04/14/17 Preoperative Diagnosis: #1: 39 and one sevenths week . #2: Previous section desires repeat. #3: Multi parity desires permanent sterilization. #4: Lower abdominal cellulitis. Postoperative Diagnosis: Same Procedure(s) Performed: Repeat low transverse section and bilateral partial salpingectomy. Anesthesia: spinal Surgeon: Kevin Segundo Director [employer]1: Nayeli Munguia Estimated Blood Loss (ml): 600 Pathology: other (Placenta and bilateral fallopian tube segments.) Condition: stable Disposition: floor Indications for Procedure: Please see dictated H&P for intimate details of this patient's admission. Brief summary is a pleasant 32-year-old 6 para 3 female 39 and one sevenths weeks gestation admitted to labor and delivery for elective repeat section and tubal ligation. Patient also understands says that she developed a boil her left lower abdomen over the last 1224 hrs. Is a known history of cellulitis are intermittent boils with history of MRSA and 2008. This does appear to be at least 5 cm above the incision. Plan today is to proceed with repeat section and tubal ligation and also going to do wound culture. Patient understands that a tubal ligation is permanent and that surgery itself has risks and risks of infection, bleeding, possible injury bowel , bladder, vessels, and/or other organs. All the patient's questions are answered written consent is obtained. Operative Findings: This is a vigorous viable male infant Apgars 9 and 9 delivery time was 0804 hrs. Infant grossly appeared normal. She had approximately 2-3 cm area of induration superior to the incision consistent with the infected cyst/cellulitis Description of Procedure: This patient has a Valladares catheter placed to straight drain. She subsequently taken to the operating room where she is sat up and spinal anesthetic is administered without incident. With adequate level of anesthesia she has abdominal prep and drape. Scalpels and taken previous Pfannenstiel incision is incised. A second scalpel is taken down to the fascia and the fascia scored with a knife. Fascial incision is extended bluntly using the Christianson scissors. Fascia is then dissected off the rectus muscles sharply. Rectus muscles are the peritoneum identified and entered sharply. Peritoneal incision extended superior and inferior without difficulty. Bladder blade is then placed. Bladder peritoneum was taken off the lower uterine segment sharply. Scalpels and taken low transverse uterine incision is made. Using a hemostat I into the uterine cavity gently there is loss of clear fluid. This incision is extended bluntly. Infant's head is then guided through the incision with fundal pressure with delivery of the 's head. Mouth and nares are bulb suctioned and we have delivery anterior posterior shoulder and rest this ' s body. Vigorous viable male infant Apgars 9 and 9 delivery time is 0804 hrs. after delivery of the the umbilical cords doubly clamped and cut appears to be trivascular. Cord blood is obtained. Placenta is manually extracted intact. Uterus is then externalized and uterine incision demarcated with Jett clamps. Uterine incision then closed using 0 Vicryl running locked fashion 2 layers. Excellent hemostasis is noted. Bladder peritoneum was reapproximated using a 3-0 Vicryl again good hemostasis is noted with this done I turned my attention left fallopian tube approximately 4 cm from the cornual insertion a small window is made to the mesial salpinx with Bovie cautery. Using 2-0 silk I doubly ligate a 2 cm segment of the tube. This is handed off to pathology and the tubal ends are cauterized good hemostasis is noted. Similar technique on the right side with similar results. With this done uterus placed back into the abdomen. Final inspection of the uterine incision and fallopian tube showed be hemostatic. Parietal peritoneum was then closed using 0 Vicryl running fashion. Rectus muscles reapproximated Vicryl interrupted fashion. Fascia is then closed using 0 PDS. Fascial incision is intact and hemostatic. Subcutaneous tissues and closed using a 3-0 Vicryl. Skin is and closed using gloria. With this done I then removed the sterile drape and a small boil is then expressed and there is a pustular material coming from I do culture this. All counts are correct 3. No complications. Patient is taken to her birthing suite in satisfactory condition.
[2017-04-14] MEDS: SULFAMETHOX-TMP 800-160MG 1 EACH TAB PO SCH (09:35)
[2017-04-14] MEDS: SENNOSIDES-DOCUSATE SODIUM 1 EACH TAB PO SCH ×2 (10:12→20:09)
[2017-04-14] MEDS: LACTATED RINGERS 1,000 ML IV SCH ×2 (10:39→17:39)
[2017-04-14] MEDS: diphenhydrAMINE 50 MG/ML 1 ML VIAL IVP PRN ×2 (11:52→20:10)
[2017-04-14] MEDS: ceFAZolin IN SWFI 2 GM/20 ML SYRINGE IVP SCH (17:39)
[2017-04-14] MEDS: KETOROLAC 30 MG/ML 1 ML VIAL IVP PRN (20:09)
[2017-04-15] MEDS: LACTATED RINGERS 1,000 ML IV SCH (02:58)
[2017-04-15] MEDS: SULFAMETHOX-TMP 800-160MG 1 EACH TAB PO SCH ×3 (03:05→20:27)
[2017-04-15] MEDS: ceFAZolin IN SWFI 2 GM/20 ML SYRINGE IVP SCH (03:05)
[2017-04-15] MEDS: KETOROLAC 30 MG/ML 1 ML VIAL IVP PRN (04:58)
[2017-04-15 08:20] LABS: Basophils # (A) 0.1 k/uL (0-0.2); Basophils % (A) 0 %; Eosinophils # (A) 0.2 k/uL (0-0.7); Eosinophils % (A) 1 %; HCT 27.9 % (34.0-46.0); Hypochromasia Moderate; Lymphocytes # (A) 2.1 k/uL (1.0-4.8); Lymphocytes % (A) 16 %; MCH 26.1 pg (25.0-35.0); MCHC 31.4 g/dL (31.0-37.0); MCV 83.2 fL (80.0-100.0); Mean Platelet Volume 7.9; Monocytes # (A) 0.8 k/uL (0-1.0); Monocytes % (A) 6 %; Neutrophils # (A) 9.7 k/uL (1.3-7.7); Neutrophils % (A) 74 %; Platelet Count 248 k/uL (150-450); RBC 3.36 m/uL (3.80-5.40); RDW 15.5 % (11.5-15.5); WBC 13.1 k/uL (3.8-10.6)
[2017-04-15 08:33] LABS: HGB 8.8 gm/dL (11.4-16.0)
[2017-04-15] MEDS: SENNOSIDES-DOCUSATE SODIUM 1 EACH TAB PO SCH ×2 (08:53→20:26)
[2017-04-15] MEDS: IBUPROFEN 600 MG TAB PO PRN ×3 (10:32→23:04)
--- NOTE | 2017-04-15 10:46 | P.PNOBGPC ---
Subjective - Subjective Principal diagnosis: Post op day 1 Interval history: Overall doing well. ambulating, voiding and tolerating her diet. voices no c/o at this time Patient reports: Reports appetite normal, Reports voiding normally, Reports pain well controlled, Reports ambulating normally [place]: doing well Objective - Vital Signs Latest vital signs: Vital Signs Temp Pulse Resp BP Pulse Ox 04/15/17 09:00 16 04/15/17 08:00 97.7 F 75 16 130/73 98 04/15/17 07:00 18 04/15/17 05:00 18 04/15/17 04:00 97.8 F 84 18 142/76 96 04/15/17 03:00 18 04/15/17 01:00 18 04/15/17 00:00 98.6 F 84 18 114/61 95 04/14/17 23:00 18 04/14/17 21:00 18 04/14/17 20:00 98.3 F 73 18 132/82 96 04/14/17 19:00 16 04/14/17 17:00 16 98 04/14/17 16:00 98.6 F 58 L 16 122/77 98 04/14/17 15:00 16 98 04/14/17 13:22 95 04/14/17 13:00 16 95 04/14/17 12:00 98.4 F 56 L 16 121/74 95 04/14/17 11:28 16 95 04/14/17 10:34 97.9 F 64 16 151/88 100 Intake and Output 04/14/17 04/15/17 04/15/17 22:59 06:59 14:59 Output Total 900 Balance -900 Output: Urine 900 Other: # Voids 1 1 1 - Exam Lungs: bilateral: normal Chest: Normal S1, Normal S2 Extremities: Present: normal Abdomen: Present: normal appearance, soft. Absent: distention, tenderness Incision: Present: normal, dry, intact Uterus: Present: normal, firm - Labs Labs: Abnormal Lab Results - Last 24 Hours (Table) 04/15/17 Range/Units 07:23 WBC 13.1 H (3.8-10.6) k/uL RBC 3.36 L (3.80-5.40) m/uL Hgb 8.8 L D (11.4-16.0) gm/dL Hct 27.9 L (34.0-46.0) % Neutrophils # 9.7 H (1.3-7.7) k/uL Microbiology - Last 24 Hours (Table) 04/14/17 08:29 Gram Stain - Preliminary Abdomen Wound Culture - Preliminary
[2017-04-15] MEDS: HYDROcodone/APAP 5-325MG 1 EACH TAB PO PRN ×2 (12:35→20:26)
[2017-04-16] MEDS: HYDROcodone/APAP 5-325MG 1 EACH TAB PO PRN ×3 (04:13→20:18)
[2017-04-16] MEDS: SENNOSIDES-DOCUSATE SODIUM 1 EACH TAB PO SCH ×2 (08:54→21:12)
[2017-04-16] MEDS: IBUPROFEN 600 MG TAB PO PRN ×3 (08:54→23:08)
--- NOTE | 2017-04-16 10:26 | P.PNOBGPC ---
Subjective - Subjective Principal diagnosis: Postoperative day 2 Interval history: Patient is doing very well postoperative day 2. She is ambulating, voiding, tolerating her diet. She is passing flatus and voices no complaints. Patient reports: Reports appetite normal, Reports voiding normally, Reports pain well controlled, Reports ambulating normally [place]: doing well Objective - Vital Signs Latest vital signs: Vital Signs Temp Pulse Resp BP Pulse Ox 04/16/17 08:00 97.8 F 78 16 132/82 98 04/16/17 01:30 131/70 04/16/17 00:00 97.8 F 75 15 157/88 04/15/17 16:00 97.8 F 67 16 132/75 04/15/17 13:00 16 04/15/17 11:00 17 - Exam Lungs: bilateral: normal Chest: Normal S1, Normal S2 Extremities: Present: normal Abdomen: Present: normal appearance, soft. Absent: distention, tenderness Incision: Present: normal, dry, intact Uterus: Present: normal, firm
[2017-04-16] MEDS: SULFAMETHOX-TMP 800-160MG 1 EACH TAB PO SCH ×2 (13:24→20:18)
[2017-04-17] MEDS: LACTATED RINGERS 1,000 ML IV SCH (00:28)
[2017-04-17] MEDS: HYDROcodone/APAP 5-325MG 1 EACH TAB PO PRN ×2 (02:38→08:56)
[2017-04-17] MEDS: IBUPROFEN 600 MG TAB PO PRN (05:35)
--- NOTE | 2017-04-17 06:27 | P.PNOBGPC ---
Subjective - Subjective Patient reports: Reports appetite normal, Reports voiding normally, Reports pain well controlled, Reports ambulating normally : doing well Objective - Vital Signs Latest vital signs: Vital Signs Temp Pulse Resp BP Pulse Ox 04/17/17 00:00 98 F 73 15 127/79 04/16/17 16:00 97.5 F L 74 16 137/84 98 04/16/17 08:00 97.8 F 78 16 132/82 98 - Exam Lungs: bilateral: normal Chest: Normal S1, Normal S2 Extremities: Present: normal Abdomen: Present: normal appearance, soft. Absent: distention, tenderness Incision: Present: normal, dry, intact Uterus: Present: normal, firm - Labs Labs: Microbiology - Last 24 Hours (Table) 04/14/17 08:29 Gram Stain - Final Abdomen Wound Culture - Final Staphylococcus lugdunenisis Assessment and Plan Assessment: Post day #3. Patient is resting without complaints. Vital signs are stable she is afebrile. Uterus is firm nontender her incision is intact and dry. Her area of cellulitis superior to the incision continues to improve. Culture from that showed variant of staph bacteria. Sensitivities are noted. My impression is a normal postoperative course. Plan is to continue routine care discharge home later today. (1) Third trimester Current Visit: Yes Status: Acute Code(s): Z34.93 - ENCNTR FOR SUPRVSN OF NORMAL PREG, UNSP, THIRD TRIMESTER SNOMED Code(s): 67692502 (2) Previous delivery affecting Current Visit: Yes Status: Acute Code(s): O34.219 - MATERNAL CARE FOR UNSP TYPE SCAR FROM PREVIOUS DEL SNOMED Code(s): 002252704 (3) Family planning Current Visit: Yes Status: Acute Code(s): Z30.09 - ENCOUNTER FOR OTH GENERAL CNSL AND ADVICE ON CONTRACEPTION SNOMED Code(s): 213174608
--- NOTE | 2017-04-17 06:29 | P.DS ---
Providers Date of admission: 04/14/17 05:48 Expected date of discharge: 04/17/17 Attending physician: Kevin Segundo Primary care physician: Stated None - Discharge Diagnosis(es) (1) Third trimester Current Visit: Yes Status: Acute (2) Previous delivery affecting Current Visit: Yes Status: Acute (3) Family planning Current Visit: Yes Status: Acute Hospital Course: Please see dictated H&P for intimate details of this patient's admission. Brief summary this pleasant 32-year-old 6 para 3 female 39 and one sevenths weeks gestation admitted for elective repeat section and permanent sterilization. Patient also was noted to have a abdominal boil/ cellulitis at the time of admission. Patient will above-named surgeries for viable male infant. Postoperative placed her on some IV antibiotics and oral antibiotics. Culture returned with a type of staph bacteria which was sensitive to the antibiotic she was on the boil continued to improve while she was in the hospital. On postoperative 3 patient was felt stable for discharge home follow up with me in 1 week. Plan - Discharge Summary New Discharge Prescriptions: New HYDROcodone/APAP 5-325MG [[place] 5-325] 1 - 2 each PO Q4HR PRN #40 tab PRN Reason: Pain Ibuprofen [Motrin] 600 mg PO Q6HR PRN #40 tab PRN Reason: Mild Pain Or Fever >= 100.5 Sulfamethox-Tmp 800-160Mg [Bactrim DS 800-160 mg] 1 each PO BID 10 Days #20 tab No Action Pedi Multivit No.25/Folic Acid [Flintstones Multivit Chew Tab] 600 mcg PO DAILY Acetaminophen Tab [Tylenol Tab] 650 mg PO Q4H PRN PRN Reason: Fever Discharge Medication List Acetaminophen Tab [Tylenol Tab] 650 mg PO Q4H PRN 01/10/17 [History] Pedi Multivit No.25/Folic Acid [Flintstones Multivit Chew Tab] 600 mcg PO DAILY 01/10/17 [History] HYDROcodone/APAP 5-325MG [[place] 5-325] 1 - 2 each PO Q4HR PRN #40 tab 04/14/17 [ Rx] Ibuprofen [Motrin] 600 mg PO Q6HR PRN #40 tab 04/14/17 [Rx] Sulfamethox-Tmp 800-160Mg [Bactrim DS 800-160 mg] 1 each PO BID 10 Days #20 tab 04/14/17 [Rx] Follow up Appointment(s)/Referral(s): Kevin Segundo MD [STAFF PHYSICIAN] - 04/24/17 1:30 pm (Patient also has a visit on May at 9:45 AM.) Patient Instructions/Handouts: (DC) Activity/Diet/Wound Care/Special Instructions: No strenuous activity or heavy lifting for 6 weeks. No intercourse or anything per vagina for 6 weeks. Please call if any fever, chills, excessive vaginal bleeding, and/or abdominal pain. Discharge Disposition: HOME SELF-CARE
[2017-04-17] MEDS: SENNOSIDES-DOCUSATE SODIUM 1 EACH TAB PO SCH (08:55)
[2017-04-17 09:04] VITALS: BP 153/84; PULSE 75; RESP 16; TEMP 97.6
[2017-04-17] MEDS: SULFAMETHOX-TMP 800-160MG 1 EACH TAB PO SCH (09:25)
== END 2017-04-17 12:06 | disposition home or self-care (01) | DRG 765 ==
LOC: 4FBP 05:48
PROVIDERS: ADMIT Obstetrics & Gynecology; ATTEND Obstetrics & Gynecology
PROC: 0UB70ZZ Excision of Bilateral Fallopian Tubes, Open Approach (ICD-10-PCS; principal; 2017-04-14 07:59)
PROC: 0HC7XZZ Extirpation of Matter from Abdomen Skin, External Approach (ICD-10-PCS; principal; 2017-04-14 07:59)
PROC: 10D00Z1 Extraction of Products of Conception, Low, Open Approach (ICD-10-PCS; principal; 2017-04-14 07:59)
DX: O34.211 Maternal care for low transverse scar from previous cesarean delivery (principal); L03.311 Cellulitis of abdominal wall; F17.200 Nicotine dependence, unspecified, uncomplicated; Z37.0 Single live birth; O99.334 Smoking (tobacco) complicating childbirth; Z3A.39 39 weeks gestation of pregnancy; Z86.14 Personal history of Methicillin resistant Staphylococcus aureus infection; Z30.2 Encounter for sterilization; O99.72 Diseases of the skin and subcutaneous tissue complicating childbirth; L02.92 Furuncle, unspecified; B95.8 Unspecified staphylococcus as the cause of diseases classified elsewhere
CPT/HCPCS: 85025; 85461; 86850; 86900; 86901; 87070; 87077; 87186; 87205; 88302; 88307

== ENCOUNTER 2021-09-23 00:32 | Emergency (ER) | payer OTHER ==
[2021-09-23 01:29] VITALS: TEMP 98.1
[2021-09-23] MEDS ORDERED: SODIUM CHLORIDE 0.9% 1,000 ML IV STA (04:17)
[2021-09-23] MEDS ORDERED: ACETAMINOPHEN TAB 500 MG TAB PO STA (04:17)
[2021-09-23] MEDS ORDERED: MORPHINE SULFATE 2 MG/ML SYRINGE IVP STA (04:18)
[2021-09-23] MEDS ORDERED: diphenhydrAMINE 50 MG/ML 1 ML VIAL IVP STA (04:18)
[2021-09-23] MEDS ORDERED: PROCHLORPERAZINE INJ 10 MG/2 ML VIAL IVP STA (04:18)
--- NOTE | 2021-09-23 05:03 | ED ---
Headache HPI <Martha Sheehan Raina - Last Filed: 09/24/21 12:14> - General Source: RN notes reviewed, old records reviewed Mode of arrival: ambulatory Limitations: no limitations - History of Present Illness MD Complaint: headache, other (hypertension) -: days(s) (5) Onset Description: gradual Location: right, left, frontal, temporal, neck Severity: moderate Severity scale (1-10): 7 Quality: throbbing, full, constant Consistency: constant Improves With: nothing, cold therapy Worsens With: none Context: occurred at rest, occurred with exertion/activity Associated Symptoms: nausea, vomiting, photophobia, sensitivity to sound Other Symptoms: other (none) Treatments Prior to Arrival: none <Moises Cruz - Last Filed: 09/30/21 22:33> - General Chief Complaint: Headache Stated Complaint: High BP Time Seen by Provider: 09/23/21 02:04 - History of Present Illness Initial Comments: This is a 36 female presents today for evaluation of headache. Patient does not have a strong history of headaches. No trauma no fevers. No neurological complaints. This is 4 days of headache at this point. Patient is also complaining of dizziness lightheadedness nausea. Patient states she's been taking her blood pressure home at home and his been elevated. 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 She presents today for elevated blood pressure and headache which is not her normal. (Moises Huber pp) - Related Data Home Medications Medication Instructions Recorded Confirmed Acetaminophen Tab [Tylenol Tab] 650 mg PO Q4H PRN 01/10/17 04/14/17 Pedi Multivit No.25/Folic Acid 600 mcg PO DAILY 01/10/17 04/14/17 [Flintstones Multivit Chew Tab] Previous Rx's Medication Instructions Recorded HYDROcodone/APAP 5-325MG [[place] 1 - 2 each PO Q4HR PRN #40 tab 04/14/17 5-325] Ibuprofen [Motrin] 600 mg PO Q6HR PRN #40 tab 04/14/17 Sulfamethox-Tmp 800-160Mg [Bactrim 1 each PO BID 10 Days #20 tab 04/14/17 DS 800-160 mg] Allergies Allergy/AdvReac Type Severity Reaction Status Date / Time codeine AdvReac Chest Verified 04/14/17 05:59 Pain/Vomiting Review of Systems ROS Other: All systems not noted in ROS Statement are negative. <Martha Sheehan Raina - Last Filed: 09/24/21 12:14> ROS Other: All systems not noted in ROS Statement are negative. <Moises Cruz - Last Filed: 09/30/21 22:33> ROS Statement: Those systems with pertinent positive or pertinent negative responses have been documented in the HPI. Past Medical History Past Medical History: Hypertension Additional Past Medical History / Comment(s): HIATAL HERNIA, anemia History of Any Multi-Drug Resistant Organisms: MRSA Date of last positivie culture/infection: 10/25/07 MDRO Source:: legs Past Surgical History: Section, Cholecystectomy, Ear Surgery Past Anesthesia/Blood Transfusion Reactions: No Reported Reaction Past Psychological History: Bipolar Smoking Status: Former smoker Past Alcohol Use History: None Reported Past Drug Use History: None Reported - Past Family History Mother Family Medical History: Hypertension <Moises Cruz - Last Filed: 09/30/21 22:33> General Exam Limitations: no limitations General appearance: alert, in no apparent distress Head exam: Present: atraumatic, normocephalic, normal inspection Eye exam: Present: normal appearance, PERRL, EOMI. Absent: scleral icterus, conjunctival injection, periorbital swelling ENT exam: Present: normal exam, mucous membranes moist Neck exam: Present: normal inspection. Absent: tenderness, meningismus, lymphadenopathy Respiratory exam: Present: normal lung sounds bilaterally. Absent: respiratory distress, wheezes, rales, rhonchi, stridor Cardiovascular Exam: Present: regular rate, normal rhythm, normal heart sounds. Absent: systolic murmur, diastolic murmur, rubs, gallop, clicks GI/Abdominal exam: Present: soft, normal bowel sounds. Absent: distended, tenderness, guarding, rebound, rigid Extremities exam: Present: normal inspection, full ROM, normal capillary refill. Absent: tenderness, pedal edema, joint swelling, calf tenderness Back exam: Present: normal inspection Neurological exam: Present: alert, oriented X3, CN II-XII intact Psychiatric exam: Present: normal affect, normal mood Skin exam: Present: warm, dry, intact, normal color. Absent: rash <Moises Cruz - Last Filed: 09/30/21 22:33> Course <Moises Cruz - Last Filed: 09/30/21 22:33> Vital Signs 09/23/21 09/23/21 09/23/21 01:22 06:15 10:02 Temperature 98.1 F Pulse Rate 86 71 74 Respiratory 18 16 18 Rate Blood Pressure 160/89 139/99 137/88 O2 Sat by Pulse 98 100 96 Oximetry - Reevaluation(s) Reevaluation #1: 09/23/21 05:54 medical record is reviewed Patient's pain is improved (Moises Cruz) Medical Decision Making - Lab Data Result diagrams: 09/23/21 06:30 09/23/21 06:30 <Martha Sheehan - Last Filed: 09/24/21 12:14> - Lab Data Result diagrams: 09/23/21 06:30 09/23/21 06:30 - Radiology Data Radiology results: report reviewed (CT brain CT angios of the head and neck is negative for acute disease), image reviewed <Moises Cruz - Last Filed: 09/30/21 22:33> - Medical Decision Making Patient signed out to me from Dr. Cruz. Patient did receive medications for migraine which has improved her headache. I reviewed her labs. She is sent for CT imaging which is reviewed by myself. Patient has no concern for as she has had a tubal. Patient is reevaluated and feels much improved. Feels comfortable discharge home. She is instructed to follow-up with primary care doctor in 2-4 days and return for any new or worsening symptoms. Patient discharged home in stable condition (Martha Sheehan) - Lab Data Lab Results 09/23/21 09/23/21 09/23/21 Range/Units 06:30 06:30 06:30 WBC 9.7 (3.8-10.6) k/uL RBC 4.75 (3.80-5.40) m/uL Hgb 13.3 (11.4-16.0) gm/dL Hct 40.6 (34.0-46.0) % MCV 85.7 (80.0-100.0) fL MCH 28.1 (25.0-35.0) pg MCHC 32.8 (31.0-37.0) g/dL RDW 13.5 (11.5-15.5) % Plt Count 215 (150-450) k/uL MPV 6.9 Neutrophils % 70 % Lymphocytes % 18 % Monocytes % 7 % Eosinophils % 3 % Basophils % 1 % Neutrophils # 6.8 (1.3-7.7) k/uL Lymphocytes # 1.7 (1.0-4.8) k/uL Monocytes # 0.7 (0-1.0) k/uL Eosinophils # 0.3 (0-0.7) k/uL Basophils # 0.1 (0-0.2) k/uL Sodium 139 (137-145) mmol/L Potassium 4.0 (3.5-5.1) mmol/L Chloride 104 (98-107) mmol/L Carbon Dioxide 27 (22-30) mmol/L Anion Gap 8 mmol/L BUN 12 (7-17) mg/dL Creatinine 0.79 (0.52-1.04) mg/dL Est GFR (CKD-EPI)AfAm >90 (>60 ml/min/1.73 sqM) Est GFR (CKD-EPI)NonAf >90 (>60 ml/min/1.73 sqM) Glucose 97 (74-99) mg/dL Calcium 8.8 (8.4-10.2) mg/dL Phosphorus 5.1 H (2.5-4.5) mg/dL Magnesium 2.1 (1.6-2.3) mg/dL Total Bilirubin 0.3 (0.2-1.3) mg/dL AST 29 (14-36) U/L ALT 49 H (4-34) U/L Alkaline Phosphatase 93 (38-126) U/L Troponin I <0.012 (0.000-0.034) ng/mL NT-Pro-B Natriuret Pep pg/mL Total Protein 7.1 (6.3-8.2) g/dL Albumin 4.1 (3.5-5.0) g/dL Urine Color Urine Appearance (Clear) Urine pH (5.0-8.0) Ur Specific [place] (1.001-1.035) Urine Protein (Negative) Urine Glucose (UA) (Negative) Urine Ketones (Negative) Urine Blood (Negative) Urine Nitrite (Negative) Urine Bilirubin (Negative) Urine Urobilinogen (<2.0) mg/dL Ur Leukocyte Esterase (Negative) Urine RBC (0-5) /hpf Urine WBC (0-5) /hpf 09/23/21 09/23/21 Range/Units 06:30 07:22 WBC (3.8-10.6) k/uL RBC (3.80-5.40) m/uL Hgb (11.4-16.0) gm/dL Hct (34.0-46.0) % MCV (80.0-100.0) fL MCH (25.0-35.0) pg MCHC (31.0-37.0) g/dL RDW (11.5-15.5) % Plt Count (150-450) k/uL MPV Neutrophils % % Lymphocytes % % Monocytes % % Eosinophils % % Basophils % % Neutrophils # (1.3-7.7) k/uL Lymphocytes # (1.0-4.8) k/uL Monocytes # (0-1.0) k/uL Eosinophils # (0-0.7) k/uL Basophils # (0-0.2) k/uL Sodium (137-145) mmol/L Potassium (3.5-5.1) mmol/L Chloride (98-107) mmol/L Carbon Dioxide (22-30) mmol/L Anion Gap mmol/L BUN (7-17) mg/dL Creatinine (0.52-1.04) mg/dL Est GFR (CKD-EPI)AfAm (>60 ml/min/1.73 sqM) Est GFR (CKD-EPI)NonAf (>60 ml/min/1.73 sqM) Glucose (74-99) mg/dL Calcium (8.4-10.2) mg/dL Phosphorus (2.5-4.5) mg/dL Magnesium (1.6-2.3) mg/dL Total Bilirubin (0.2-1.3) mg/dL AST (14-36) U/L ALT (4-34) U/L Alkaline Phosphatase (38-126) U/L Troponin I (0.000-0.034) ng/mL NT-Pro-B Natriuret Pep 44 pg/mL Total Protein (6.3-8.2) g/dL Albumin (3.5-5.0) g/dL Urine Color Light Yellow Urine Appearance Clear (Clear) Urine pH 6.0 (5.0-8.0) Ur Specific [place] 1.008 (1.001-1.035) Urine Protein Negative (Negative) Urine Glucose (UA) Negative (Negative) Urine Ketones Negative (Negative) Urine Blood Trace H (Negative) Urine Nitrite Negative (Negative) Urine Bilirubin Negative (Negative) Urine Urobilinogen <2.0 (<2.0) mg/dL Ur Leukocyte Esterase Negative (Negative) Urine RBC 1 (0-5) /hpf Urine WBC 1 (0-5) /hpf - EKG Data EKG Comments: EKG demonstrates sinus rhythm with a rate of 61. CT interval 167. QRS 94. QTC 449. No acute ST segment elevations or depressions (Martha Sheehan) Disposition Is patient prescribed a controlled substance at d/c from ED?: No Time of Disposition: 08:54 <Martha Sheehan - Last Filed: 09/24/21 12:14> Is patient prescribed a controlled substance at d/c from ED?: No <Moises Cruz - Last Filed: 09/30/21 22:33> Clinical Impression: Migraine, Headache, Hypertension Disposition: HOME SELF-CARE Condition: Good Instructions (If sedation given, give patient instructions): Acute Headache (ED) Additional Instructions: Please follow-up with your primary care doctor in 2-4 days. Return for any new or worsening symptoms Referrals: Mary Sarmiento MD [Primary Care Provider] - 1-2 days
[2021-09-23 07:02] LABS: Basophils # (A) 0.1 k/uL (0-0.2); Basophils % (A) 1 %; Eosinophils # (A) 0.3 k/uL (0-0.7); Eosinophils % (A) 3 %; HCT 40.6 % (34.0-46.0); HGB 13.3 gm/dL (11.4-16.0); Lymphocytes # (A) 1.7 k/uL (1.0-4.8); Lymphocytes % (A) 18 %; MCH 28.1 pg (25.0-35.0); MCHC 32.8 g/dL (31.0-37.0); MCV 85.7 fL (80.0-100.0); Mean Platelet Volume 6.9; Monocytes # (A) 0.7 k/uL (0-1.0); Monocytes % (A) 7 %; Neutrophils # (A) 6.8 k/uL (1.3-7.7); Neutrophils % (A) 70 %; Platelet Count 215 k/uL (150-450); RBC 4.75 m/uL (3.80-5.40); RDW 13.5 % (11.5-15.5); WBC 9.7 k/uL (3.8-10.6)
[2021-09-23 07:21] LABS: ALT 49 U/L (4-34); AST 29 U/L (14-36); African American GFR (CKD) >90 (>60 ml/min/1.73 sqM); Albumin 4.1 g/dL (3.5-5.0); Alkaline Phosphatase 93 U/L (38-126); Anion Gap 8 mmol/L; Blood Urea Nitrogen 12 mg/dL (7-17); Calcium 8.8 mg/dL (8.4-10.2); Carbon Dioxide 27 mmol/L (22-30); Chloride 104 mmol/L (98-107); Glucose 97 mg/dL (74-99); Magnesium 2.1 mg/dL (1.6-2.3); Non-African American GFR(CKD) >90 (>60 ml/min/1.73 sqM); Phosphorus 5.1 mg/dL (2.5-4.5); Sodium 139 mmol/L (137-145); Total Bilirubin 0.3 mg/dL (0.2-1.3); Total Protein 7.1 g/dL (6.3-8.2)
[2021-09-23 07:52] LABS: Appearance,Urine Clear (Clear); Bilirubin,Urine Negative (Negative); Blood,Urine Trace (Negative); Color,Urine Light Yellow; Glucose,Urine (UA) Negative (Negative); Ketones,Urine Negative (Negative); Leukocyte Esterase,Urine Negative (Negative); Nitrite,Urine Negative (Negative); Protein,Urine Negative (Negative); RBC,Urine 1 /hpf (0-5); Specific Gravity,Urine 1.008 (1.001-1.035); Urobilinogen,Urine <2.0 mg/dL (<2.0); WBC,Urine 1 /hpf (0-5)
--- NOTE | 2021-09-23 08:47 | CT ---
EXAMINATION TYPE: CT brain wo con, CT angio head neck DATE OF EXAM: 09/23/2021 COMPARISON: Unavailable HISTORY: Headache. HTN. (accession [id number]), Headache, HTN (accession [id number]) CT DLP: 1806.9 mGycm Automated exposure control for dose reduction was used. TECHNIQUE: CT scan of the brain is performed without IV contrast administration, followed by CTA of t he head and neck arteries with contrast. 3-D reconstruction images were generated on an independent w orkstation and reviewed. FINDINGS: No acute intracranial hemorrhage. No gross acute cortical infarct. No midline shift, herniation or ve ntriculomegaly. Unremarkable molina-white matter differentiation, basal cisterns, sella and CP angles. No gross space-occupying lesion, vasogenic edema or mass effect. Artifactual CT images. Bovine aortic arch. Otherwise normal caliber and enhancement of the neck arter ies and intracranial arteries without significant stenosis, occlusion, dissection, aneurysm or AV mal formation. No intracranial abnormal enhancement. Unremarkable orbits. Clear visualized paranasal sinuses. Hypopneumatized mastoid air cells. Unremarka ble calvarial bones. Enlarged nasopharyngeal and palatine tonsils, please correlate clinically. IMPRESSION: No acute intracranial abnormality or gross space-occupying lesion. Unremarkable CTA of the head and n desmond arteries with the limitation of the artifactual images. Incidental findings as described above.
[2021-09-23 10:03] VITALS: BP 137/88; PULSE 74; RESP 18
== END 2021-09-23 10:03 | disposition home or self-care (01) ==
LOC: EC 00:32
DX: G43.909 Migraine, unspecified, not intractable, without status migrainosus (principal); I10 Essential (primary) hypertension; Z87.891 Personal history of nicotine dependence; Z88.5 Allergy status to narcotic agent
CPT/HCPCS: 99284; 96374; 96375; 96361; 36415; 93005; 83880; 80053; 83735; 84100; 84484; 85025; 81001; 70496; 70450; 70498; J1200; J0780; J2270; Q9967